=== PATIENT | female | born 1980 | race Caucasian/White ===

== ENCOUNTER → 2022-07-23 14:21 | Outpatient (CLI) | payer OTHER, SELFPAY ==
--- NOTE | 2022-07-23 | DI.MG.S_ITS ---
BILATERAL DIGITAL SCREENING MAMMOGRAM 3D/2D WITH CAD: 07/23/2022 CLINICAL: Routine screening. Baseline exam. No prior exams were available for comparison. There are scattered areas of fibroglandular density in both breasts (category b / 25%-50% glandular tissue). Current study was also evaluated with a Computer Aided Detection (CAD) system. There is a 0.4 cm oval equal density asymmetry in the left breast middle depth medial region seen on the craniocaudal view only. No other significant masses, calcifications, or other findings are seen in either breast. IMPRESSION: INCOMPLETE: NEEDS ADDITIONAL IMAGING EVALUATION The 0.4 cm oval equal density asymmetry in the left breast resembles a cyst, a possible skin lesion, or a lymph node and is indeterminate. Additional views with possible ultrasound are recommended. Based on the Tyrer Cuzick model (a risk assessment model) the patient's lifetime risk is 10.0% and her 10 year risk is 1.6%. According to the ACR, ACS, and NCCN guidelines, an annual breast MRI exam along with mammogram is recommended if the patient's lifetime risk is 20% or greater. This exam was interpreted at Station ID: [id number]. NOTE: For mammograms, a report in lay terms will be sent to the patient. Approximately 15% of breast malignancies will not be visualized mammographically. In the management of a palpable breast mass, a negative mammogram must not discourage biopsy of a clinically suspicious lesion. Electronically Signed By: Danny Saini M.D. aty/:07/23/2022 20:15:10 letter sent: Additional Imaging Needed ACR BI-RADS Category 0: Incomplete 3340F
== END ==
PROVIDERS: PCP Family Medicine; Referring Provider Family Medicine; Visit Provider Family Medicine
DX: Z12.31 Encounter for screening mammogram for malignant neoplasm of breast (principal)
CPT/HCPCS: 77063; 77067

== ENCOUNTER → 2022-08-06 13:01 | Outpatient (CLI) | payer OTHER, SELFPAY ==
--- NOTE | 2022-08-06 13:02 | DI.MG.S_ITS ---
UNILATERAL LEFT DIGITAL DIAGNOSTIC MAMMOGRAM 3D/2D WITH ADDITIONAL VIEWS: 08/06/2022 CLINICAL: Additional evaluation requested from prior study. Comparison is made to exam dated: 07/23/2022 mammogram - [facility]. There are scattered areas of fibroglandular density in the left breast (category b / 25%-50% glandular tissue). There is a 0.4 cm oval equal density asymmetry with a circumscribed margin in the left breast at 10 o'clock middle depth. This is seen in additional views. No other significant masses or calcifications are seen in the breast. IMPRESSION: INCOMPLETE: NEEDS ADDITIONAL IMAGING EVALUATION The 0.4 cm oval equal density asymmetry in the left breast resembles a lymph node and is indeterminate. An ultrasound is recommended. Based on the Tyrer Cuzick model (a risk assessment model) the patient's lifetime risk is 10.0% and her 10 year risk is 1.6%. According to the ACR, ACS, and NCCN guidelines, an annual breast MRI exam along with mammogram is recommended if the patient's lifetime risk is 20% or greater. This exam was interpreted at Station ID: [id number]. NOTE: For mammograms, a report in lay terms will be sent to the patient. Approximately 15% of breast malignancies will not be visualized mammographically. In the management of a palpable breast mass, a negative mammogram must not discourage biopsy of a clinically suspicious lesion. Electronically Signed By: Mike leonard/aftab:08/06/2022 14:32:29 ACR BI-RADS Category 0: Incomplete 3340F
--- NOTE | 2022-08-06 13:02 | DI.US.S_ITS ---
LIMITED ULTRASOUND OF LEFT BREAST AND AXILLA: 08/06/2022 CLINICAL: Patient returns today to evaluate a focal asymmetry in the left breast. Comparison is made to exams dated: 08/06/2022 mammogram and 07/23/2022 mammogram - [facility]. Color flow ultrasound of the left breast 8-11 o'clock, and axilla regions was performed. Lopez scale images of the real-time examination were reviewed. There is a possible 0.3 cm x 0.5 cm x 0.4 cm area of fibrocystic tissue with an indistinct margin in the left breast at 8 o'clock middle depth 3 cm from the nipple. This area of fibrocystic tissue is of mixed echogenicity with posterior acoustic shadowing. Color flow imaging demonstrates that there is no vascularity present. This finding could correspond to the mammographic abnormality. No significant abnormalities were seen sonographically in the left axilla. IMPRESSION: PROBABLY BENIGN The possible 0.3 cm x 0.5 cm x 0.4 cm area of fibrocystic tissue in the left breast is probably benign. A follow-up left mammogram and an ultrasound in 6 months is recommended to demonstrate stability. This exam was interpreted at Station ID: [id number]. Electronically Signed By: Mike leonard/aftab:08/06/2022 14:36:24 letter sent: Followup Recommended Ultrasound BI-RADS: 3 Probably benign
[2022-08-06 16:35] LABS: Cholesterol 155 mg/dL (140-199); HDL Cholesterol 52 mg/dL (40-60); LDL Cholesterol Calculated 92 mg/dL (<100); Triglycerides 55 mg/dL (35-150)
[2022-08-06 16:58] LABS: TSH w/ Reflex to FT4 1.71 uIU/mL (0.47-4.68)
[2022-08-06 17:58] LABS: Follicle Stimulating Hormone 2.79 mIU/mL; Luteinizing Hormone 0.737 mIU/mL
[2022-08-11 20:53] LABS: Estrogen 277 pg/mL (.)
== END ==
PROVIDERS: PCP Family Medicine; Referring Provider Family Medicine; Visit Provider Family Medicine
DX: R92.8 Other abnormal and inconclusive findings on diagnostic imaging of breast (principal); E66.9 Obesity, unspecified; N92.6 Irregular menstruation, unspecified; Z11.59 Encounter for screening for other viral diseases
CPT/HCPCS: 36415; 76642; 77065; 80061; 82672; 83001; 83002; 83036; 84443; 87522; G0279

== ENCOUNTER → 2022-08-10 17:00 | Outpatient (ROUT) | payer SELFPAY ==
[2022-08-10 17:04] LABS: Urine Drug Scr, Empl Non-NIDA See Separate Report
== END ==
PROVIDERS: PCP Family Medicine
DX: Z02.1 Encounter for pre-employment examination (principal)
CPT/HCPCS: 81099

== ENCOUNTER → 2022-09-01 12:52 | Outpatient (CLI) | payer OTHER, SELFPAY ==
[2022-09-01 14:20] LABS: INR 1.2 (0.9-1.3); Prothrombin Time 13.2 SECONDS (10.1-12.7)
== END ==
PROVIDERS: PCP Family Medicine; Referring Provider Student in an Organized Health Care Education/Training Program; Visit Provider Student in an Organized Health Care Education/Training Program
DX: I82.409 Acute embolism and thrombosis of unspecified deep veins of unspecified lower extremity (principal)
CPT/HCPCS: 36415; 85610

== ENCOUNTER → 2023-02-14 10:08 | Outpatient (CLI) | payer OTHER, SELFPAY ==
--- NOTE | 2023-02-14 | DI.MG.S_ITS ---
UNILATERAL LEFT DIGITAL DIAGNOSTIC MAMMOGRAM 3D/2D SHORT-TERM FOLLOW-UP: 02/14/2023 CLINICAL: Short term follow up for the left breast. Comparison is made to exams dated: 08/06/2022 mammogram and 07/23/2022 mammogram - [facility]. There are scattered areas of fibroglandular density in the left breast (category b / 25%-50% glandular tissue). There is a stable focal asymmetry in the left breast at 9 o'clock middle depth. No other significant masses or calcifications are seen in the breast. IMPRESSION: INCOMPLETE: NEEDS ADDITIONAL IMAGING EVALUATION The stable focal asymmetry in the left breast is indeterminate. A targeted ultrasound of the left breast is recommended and will be performed immediately following this exam. Based on the Tyrer Cuzick model (a risk assessment model) the patient's lifetime risk is 10.0% and her 10 year risk is 1.6%. According to the ACR, ACS, and NCCN guidelines, an annual breast MRI exam along with mammogram is recommended if the patient's lifetime risk is 20% or greater. This exam was interpreted at Station ID: [id number]. NOTE: For mammograms, a report in lay terms will be sent to the patient. Approximately 15% of breast malignancies will not be visualized mammographically. In the management of a palpable breast mass, a negative mammogram must not discourage biopsy of a clinically suspicious lesion. Electronically Signed By: Yary Brown M.D. lk/:02/14/2023 10:50:28 ACR BI-RADS Category 0: Incomplete 3340F
--- NOTE | 2023-02-14 10:55 | DI.US.S_ITS ---
Patient Name: NORMAN ALMEIDA date: 1980 Sex: F Attending Physician: Raffaele Indications: Date: 02/14/2023 11:32 At the request of: SUNI LING Procedure: US breast LT limited LIMITED ULTRASOUND OF LEFT BREAST AND AXILLA: 02/14/2023 CLINICAL: LEFT BREAST 6 MO FOLLOW UP. Comparison is made to exams dated: 02/14/2023 mammogram, 02/14/2023 mammogram, 08/06/2022 ultrasound, 08/06/2022 mammogram, and 07/23/2022 mammogram - [facility]. Color flow ultrasound of the left breast axilla was performed on the areas of interest. Lopez scale images of the real-time examination were reviewed. There is a stable irregular area of hypoechoic fibroglandular tissue in the left breast at 9 o'clock middle depth. This may correlate with mammography findings. Color flow imaging demonstrates that there is no vascularity present. IMPRESSION: PROBABLY BENIGN The stable irregular area of fibroglandular tissue in the left breast is probably benign. A follow-up mammogram and an ultrasound in 6 months is recommended to demonstrate stability. This exam was interpreted at Station ID: [id number]. Electronically Signed By: Yary walker/:02/14/2023 11:32:00 letter sent: Followup Recommended Ultrasound BI-RADS: 3 Probably benign
== END ==
PROVIDERS: PCP Family Medicine; Referring Provider Family Medicine; Visit Provider Family Medicine
DX: N64.89 Other specified disorders of breast (principal); R92.8 Other abnormal and inconclusive findings on diagnostic imaging of breast
CPT/HCPCS: 76642; 77065; G0279

== ENCOUNTER → 2023-08-25 09:31 | Outpatient (CLI) | payer OTHER, SELFPAY ==
--- NOTE | 2023-08-25 09:32 | DI.US.S_ITS ---
LIMITED ULTRASOUND OF LEFT BREAST: 08/25/2023 CLINICAL: 6 month follow up of a focal asymmetry in the left breast. Comparison is made to exams dated: 08/25/2023 mammogram, 02/14/2023 ultrasound, 02/14/2023 mammogram, 08/06/2022 ultrasound, 08/06/2022 mammogram, and 07/23/2022 mammogram - [facility]. Color flow and real-time ultrasound of the left breast 9 o'clock region were performed. Lopez scale images of the real-time examination were reviewed. There is a possible stable 0.2 cm x 0.3 cm x 0.2 cm area of fibroglandular tissue in the left breast at 9 o'clock middle depth. This area of fibroglandular tissue is hypoechoic. This correlates with mammography findings. IMPRESSION: PROBABLY BENIGN The possible stable 0.2 cm x 0.3 cm x 0.2 cm area of fibroglandular tissue in the left breast is probably benign. A follow-up mammogram and an ultrasound in 6 months is recommended to demonstrate stability. This exam was interpreted at Station ID: [id number]. Electronically Signed By: Franky Rosenthal M.D. lc/:08/25/2023 10:33:58 letter sent: Followup Recommended Ultrasound BI-RADS: 3 Probably benign
--- NOTE | 2023-08-25 09:32 | DI.MG.S_ITS ---
BILATERAL DIGITAL DIAGNOSTIC MAMMOGRAM 3D/2D SHORT-TERM FOLLOW-UP: 08/25/2023 CLINICAL: Short term follow up of the left breast, due for bilateral imaging. Comparison is made to exams dated: 07/23/2022 mammogram, 08/06/2022 mammogram, and 02/14/2023 mammogram - [facility]. There are scattered areas of fibroglandular density in both breasts (category b / 25%-50% glandular tissue). There is a stable focal asymmetry in the left breast at 9 o'clock middle depth. No other significant masses, calcifications, or other findings are seen in either breast. IMPRESSION: INCOMPLETE: NEEDS ADDITIONAL IMAGING EVALUATION A targeted ultrasound of the left breast is recommended and will be performed immediately following this exam. The stable focal asymmetry in the left breast is indeterminate. An ultrasound is recommended. Based on the Tyrer Cuzick model (a risk assessment model) the patient's lifetime risk is 9.9% and her 10 year risk is 1.7%. According to the ACR, ACS, and NCCN guidelines, an annual breast MRI exam along with mammogram is recommended if the patient's lifetime risk is 20% or greater. This exam was interpreted at Station ID: [id number]. NOTE: For mammograms, a report in lay terms will be sent to the patient. Approximately 15% of breast malignancies will not be visualized mammographically. In the management of a palpable breast mass, a negative mammogram must not discourage biopsy of a clinically suspicious lesion. Electronically Signed By: Franky Rosenthal M.D. lc/:08/25/2023 10:32:26 ACR BI-RADS Category 0: Incomplete 3340F
== END ==
LOC: MAMMO 09:31
PROVIDERS: PCP Family Medicine; Referring Provider Family Medicine; Visit Provider Family Medicine
DX: R92.8 Other abnormal and inconclusive findings on diagnostic imaging of breast (principal); N60.02 Solitary cyst of left breast; R92.323 Mammographic fibroglandular density, bilateral breasts
CPT/HCPCS: 76642; 77066; G0279

== ENCOUNTER → 2023-09-03 08:13 | Outpatient (CLI) | payer OTHER, SELFPAY ==
[2023-09-03 10:05] LABS: Influenza A - CEPHEID Flu A NEGATIVE (NEGATIVE); Influenza B - CEPHEID Flu B NEGATIVE (NEGATIVE); Respiratory Syncytial Virus Negative (Negative)
[2023-09-03 12:40] LABS: COVID-19 CEPHEID 4-PLEX PCR Negative (Negative)
== END ==
PROVIDERS: PCP Family Medicine; Visit Provider Physician Assistant Surgical
DX: J02.9 Acute pharyngitis, unspecified (principal); R05.9 Cough, unspecified; J04.0 Acute laryngitis
CPT/HCPCS: 0241U; 87070

== ENCOUNTER → 2023-09-03 08:45 | Outpatient (CLI) | payer OTHER, SELFPAY ==
--- NOTE | 2023-09-03 08:46 | DI.RAD.S_ITS ---
PROCEDURE: XR CHEST 2V INDICATIONS: Rhochi on exam, cough/congestion TECHNIQUE: 2 views of the chest were acquired. COMPARISON: None. FINDINGS: Surgical changes and devices: None. Lungs and pleura: Lungs are clear. No pleural effusions or pneumothorax. Mediastinum: Mediastinal contours are normal. Heart size is normal. Bones and chest wall: No suspicious bony abnormalities. Soft tissues appear unremarkable. IMPRESSION: No acute cardiopulmonary abnormality is seen. No focal infiltrates are seen. No pulmonary edema can be seen. Dictated by: Ron Ridley M.D. on 09/03/2023 at 8:09 Approved by: Ron Ridley M.D. on 09/03/2023 at 8:10
== END ==
PROVIDERS: PCP Family Medicine; Referring Provider Physician Assistant Surgical; Visit Provider Physician Assistant Surgical
DX: J04.0 Acute laryngitis (principal); J02.9 Acute pharyngitis, unspecified; R05.9 Cough, unspecified; R09.89 Other specified symptoms and signs involving the circulatory and respiratory systems
CPT/HCPCS: 0241U; 71046; 87070; 87077; 87147